=== PATIENT | male | born 1955 | race Caucasian/White ===

== ENCOUNTER → 2016-08-14 | Outpatient (REF) | payer OTHER | LOC: M LAB REF 12:01 | PROVIDERS: ATTEND Family Medicine | DX: M10.9 Gout, unspecified (principal) ==

== ENCOUNTER 2016-10-23 07:43 | Emergency (ER) | payer OTHER ==
[~2016-10-23] VITALS: Ht 182.9 cm; Wt 133.8 kg
[2016-10-23] MEDS ORDERED: LOSA50TA20 PO (08:04)
[2016-10-23] MEDS ORDERED: ALLO10TA PO (08:05)
[2016-10-23] MEDS ORDERED: COLC1CAP PO (08:06)
[2016-10-23] MEDS ORDERED: INDO50CA PO (08:07)
[2016-10-23] MEDS ORDERED: MORPHINE 4 MG/ML 1ML SYRINGE IV ONE (08:30)
[2016-10-23 08:49] LABS: BASO % 0.6 % (0.0-1.0); EOS # 0.2 K/mm3 (0.0-0.50); EOS % 3.7 % (0.0-3.0); LARGE UNSTAINED CELL # 0.1 K/mm3 (0.0-0.4); LYMPH # 1.1 K/mm3 (1.5-4.5); LYMPH % 25.3 % (24.0-44.0); MEAN CORPUSCULAR HEMOGLOBIN 30.9 pg (27.0-33.0); MEAN CORPUSCULAR HGB CONC 33.6 g/dl (32.0-36.5); MEAN CORPUSCULAR VOLUME 91.9 fl (80.0-96.0); MONO # 0.3 K/mm3 (0.0-0.8); MONO % 6.2 % (0.0-5.0); NEUTROPHILS # 2.5 K/mm3 (1.8-7.7); NEUTROPHILS % 62.2 % (36.0-66.0); PLATELET COUNT, AUTOMATED 165 k/mm3 (150-450); RED CELL DISTRIBUTION WIDTH 14.3 % (11.5-14.5)
[2016-10-23 09:13] LABS: ANION GAP 6 MEQ/L (8-16); BLOOD UREA NITROGEN 24 MG/DL (7-18); CALCIUM LEVEL 8.9 MG/DL (8.8-10.2); CARBON DIOXIDE LEVEL 27 MEQ/L (21-32); CHLORIDE LEVEL 108 MEQ/L (98-107); CREATININE FOR GFR 1.04 MG/DL (0.70-1.30); GLOMERULAR FILTRATION RATE > 60.0 (>49); GLUCOSE, FASTING 101 MG/DL (80-110); POTASSIUM SERUM 3.9 MEQ/L (3.5-5.1); SODIUM LEVEL 141 MEQ/L (136-145)
--- NOTE | 2016-10-23 09:46 | REP ---
Abdominal wall ultrasound: History: Umbilical hernia, assess contents. Findings: Scanning is obtained through the anterior abdominal wall in the region of the umbilical hernia. A defect in the anterior abdominal wall is observed measuring 0.7 cm transverse without Valsalva and 1.3 cm with Valsalva. Hernia was not reducible to sonographic pressure. Its contents appear to be slightly heterogeneous intra-abdominal fat. No peristalsis was observed. Impression: Nonreducible umbilical hernia containing abdominal fat. Signed by Jeffrey Nichols MD 10/23/2016 12:08 P
[2016-10-23 10:39] VITALS: BP 142/80
== END 2016-10-23 10:42 | disposition home or self-care (01) ==
LOC: M ED 09:38
DX: K42.9 Umbilical hernia without obstruction or gangrene (principal)

== ENCOUNTER 2017-01-03 16:10 | Observation (INO) | payer OTHER ==
[~2017-01-03] VITALS: Ht 182.9 cm; Wt 132.5 kg
[~2017-01-03 16:10] MED LIST: ALLO10TA PO; COLC1CAP PO; INDO50CA PO; LOSA50TA20 PO
[2017-01-03] MEDS ORDERED: INDO50CA PO (16:29)
[2017-01-03 17:08] LABS: BASO % 0.7 % (0.0-1.0); EOS # 0.1 K/mm3 (0.0-0.50); EOS % 1.6 % (0.0-3.0); LARGE UNSTAINED CELL # 0.1 K/mm3 (0.0-0.4); LYMPH # 0.9 K/mm3 (1.5-4.5); LYMPH % 17.3 % (24.0-44.0); MEAN CORPUSCULAR HEMOGLOBIN 30.9 pg (27.0-33.0); MEAN CORPUSCULAR HGB CONC 33.5 g/dl (32.0-36.5); MEAN CORPUSCULAR VOLUME 92.1 fl (80.0-96.0); MONO # 0.2 K/mm3 (0.0-0.8); MONO % 4.8 % (0.0-5.0); NEUTROPHILS # 3.6 K/mm3 (1.8-7.7); NEUTROPHILS % 74.6 % (36.0-66.0); PLATELET COUNT, AUTOMATED 177 k/mm3 (150-450); RED CELL DISTRIBUTION WIDTH 14.3 % (11.5-14.5); WHITE BLOOD COUNT 4.9 K/mm3 (4.0-10.0)
[2017-01-03 17:14] LABS: INR 0.99
--- NOTE | 2017-01-03 17:26 | REP ---
Portable chest: Single view. History: Syncope. Comparison study: No comparison study. Findings: A the lungs are symmetrically aerated and free of infiltrate. Heart is not felt to be enlarged. Pulmonary vasculature is not increased. The aorta is somewhat tortuous. EKG electrodes are seen. Impression: No active disease. Signed by Jeffrey Nichols MD 01/03/2017 05:17 P
[2017-01-03 17:39] LABS: ANION GAP 11 MEQ/L (8-16); BLOOD UREA NITROGEN 20 MG/DL (7-18); CALCIUM LEVEL 8.8 MG/DL (8.8-10.2); CARBON DIOXIDE LEVEL 23 MEQ/L (21-32); CHLORIDE LEVEL 105 MEQ/L (98-107); CREATININE FOR GFR 0.99 MG/DL (0.70-1.30); GLOMERULAR FILTRATION RATE > 60.0 (>49); GLUCOSE, FASTING 89 MG/DL (80-110); MAGNESIUM LEVEL 2.2 MG/DL (1.8-2.4); POTASSIUM SERUM 3.8 MEQ/L (3.5-5.1); SODIUM LEVEL 139 MEQ/L (136-145)
[2017-01-03] MEDS ORDERED: ZYLO300T4 PO (17:42)
[2017-01-03 17:58] LABS: ALBUMIN 3.7 GM/DL (3.2-5.2); ALBUMIN/GLOBULIN RATIO 1.23 (1.00-1.93); ALKALINE PHOSPHATASE 70 U/L (45-117); ALT/SGPT 41 U/L (12-78); AST/SGOT 27 U/L (15-37); BILIRUBIN,DIRECT 0.2 MG/DL (0.0-0.2); BILIRUBIN,TOTAL 0.8 MG/DL (0.2-1.0); TOTAL PROTEIN 6.7 GM/DL (6.4-8.2)
[2017-01-03] MEDS ORDERED: ACETAMINOPHEN TAB 650MG DOSE (2X325MG) PO PRN (20:00)
--- NOTE | 2017-01-03 21:30 | HPE ---
DATE OF ADMISSION: 01/03/2017 PRIMARY CARE PROVIDER: Dr. Franck Leon ATTENDING PHYSICIAN: Dr. Keyes CHIEF COMPLAINT: Syncope episode. HISTORY OF PRESENT ILLNESS: The patient is a 61-year-old white male with a history of high blood pressure who presented to the hospital for evaluation of syncope episode. History was provided by himself and he is a good historian. 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 After his first drink he stated that he was feeling dizzy and almost passed out. People around him put him on the floor flat and called 911. His blood pressure was checked at the scene and found down to the 80s. Then he was brought to the hospital for further evaluation. He denies any headache. No tingling, numbness, weakness in the arms or lower extremities. No urine or bowel incontinence. No seizure activity. In the emergency room, his workup was insignificant, including normal blood tests and normal EKG. The medicine service was called for admission. REVIEW OF SYSTEMS: Denies fever. No chills. No headache. No blurry vision. No shortness of breath. No nausea or vomiting. No chest pain. No abdominal pain. No diarrhea. No tingling, numbness, or weakness in the arms or lower extremities. All other systems reviewed but negative. PAST MEDICAL HISTORY: 1. Hypertension. 2. Gout. PAST SURGICAL HISTORY: Right hip replacement. FAMILY HISTORY: Both parents . Mother from cancer. The father had a history of high blood pressure. ALLERGIES: Allergic to ASPIRIN, which causes lip swelling. MEDICATIONS: - losartan 50 mg once a day - colchicine 0.6 mg twice a day - indomethacin as needed - allopurinol 300 mg once a day PHYSICAL EXAMINATION: VITAL SIGNS: Temperature is 97 and heart rate is 84, respiratory rate 20, blood pressure 128/72, oxygen saturation is 96% on room air. GENERAL: He is awake, alert and oriented times three. He is not in acute distress. HEENT: Atraumatic. Pupils are equal, round and reactive to light. No jaundice. Extraocular muscles intact. Ears, nose and throat normal without any inflammation. NECK: No jugular venous distention (JVD). No bruits. LUNGS: Clear. No crackles. No wheezing. HEART: S1, S2. Regular. No murmur. ABDOMEN: Soft. Bowel sounds positive. Nontender. EXTREMITIES: Lower extremities with no edema in bilateral lower extremities. NEUROLOGIC: Nonfocal. SKIN: No rash. PSYCHOLOGICAL: No acute psychosis. DIAGNOSTIC/LABORATORIES: Include the following: Complete blood count (CBC) and differential showed WBC 4.9, hemoglobin and hematocrit 13.5/40.2, platelets 177. Sodium 139, potassium 3.8, BUN 20, creatinine 0.99, glucose 89, TSH is normal. Liver function tests within normal. Troponin negative. Normal EKG. IMPRESSION: 1. Near syncope. 2. Hypertension. 3. Gout. PLAN: Most likely the patient had vasovagal syncope due to the hot weather and low blood pressure. He will be admitted to the progressive care unit (PCU) for monitoring to rule out any arrhythmia. We will order head CT, carotid Doppler, as well as echocardiogram. We will continue his home medications. We will gently hydrate him. He will be admitted for observation.
--- NOTE | 2017-01-03 21:59 | REP ---
Clinical: Syncope . Findings: Age-related atrophy and microvascular ischemic changes are appreciated. The ventricles and sulci are symmetric. Fernández-white differentiation is maintained. There is no evidence for acute intracranial hemorrhage, mass/mass effect, pathology or infarction. No extra-axial fluid collection. Calvarium is intact. Paranasal sinuses and mastoid air cells are clear. Incidental note for calcified granuloma in the left occipital scalp. Impression: Age related atrophy and microvascular ischemic changes. No acute intracranial hemorrhage, infarction, or mass/mass effect. Incidental note for calcified granuloma in the left occipital scalp. Signed by Ced Dow MD 01/03/2017 09:50 P
[2017-01-03] MEDS: NS 1,000 ML IV SCH (23:30)
[2017-01-03] MEDS: LOSARTAN 50 MG TAB PO SCH (23:31)
[2017-01-03] MEDS: COLCHICINE 0.6 MG TAB PO SCH (23:31)
[2017-01-04 05:20] VITALS: BP 138/89
--- NOTE | 2017-01-04 07:45 | REP ---
Clinical: Syncope. Technique: Fernández scale and color Doppler evaluation using linear high frequency transducer Findings: Two-dimensional fernández scale and color images demonstrate normal arterial lumen with laminar flow and no appreciable narrowing. Color Doppler interrogation demonstrates normal arterial wave patterns and velocities with minimal spectral broadening. Normal flow direction is appreciated in the bilateral vertebral arteries. RIGHT (cm/s) LEFT (cm/s) ICA peak systolic velocity 72.0 60.8 ICA diastolic velocity 20.9 23.3 ECA peak systolic velocity 115.0 58.4 CCA peak systolic velocity 108.4 90.1 ICA/CCA ratio 0.66 0.67 Impression: No hemodynamically significant areas of narrowing or stenosis appreciated. Based on set standards narrowing falls within the less than 50% range. Signed by Ced Dow MD 01/04/2017 07:36 A
[2017-01-04 08:00] VITALS: BP 140/90
[2017-01-04] MEDS ORDERED: POTASSIUM CHLORIDE 10 MEQ SR TABLET PO ONE (08:15)
[2017-01-04] MEDS: COLCHICINE 0.6 MG TAB PO SCH ×2 (08:40→20:15)
[2017-01-04] MEDS: ALLOPURINOL 300 MG TAB PO SCH (08:40)
[2017-01-04] MEDS: LOSARTAN 50 MG TAB PO SCH ×2 (08:41→20:21)
[2017-01-04] MEDS: ENOXAPARIN 40 MG/0.4 ML SYRINGE (J1650) SC SCH (08:41)
[2017-01-04] MEDS: NS 1,000 ML IV SCH (08:42)
[2017-01-04 09:09] LABS: MEAN CORPUSCULAR HEMOGLOBIN 31.7 pg (27.0-33.0); MEAN CORPUSCULAR HGB CONC 33.9 g/dl (32.0-36.5); MEAN CORPUSCULAR VOLUME 93.5 fl (80.0-96.0); RED CELL DISTRIBUTION WIDTH 14.3 % (11.5-14.5); WHITE BLOOD COUNT 4.8 K/mm3 (4.0-10.0)
[2017-01-04 09:21] LABS: ANION GAP 7 MEQ/L (8-16); BLOOD UREA NITROGEN 20 MG/DL (7-18); CARBON DIOXIDE LEVEL 25 MEQ/L (21-32); CHLORIDE LEVEL 111 MEQ/L (98-107); CREATININE FOR GFR 1.08 MG/DL (0.70-1.30); GLOMERULAR FILTRATION RATE > 60.0 (>49); GLUCOSE, FASTING 93 MG/DL (80-110); POTASSIUM SERUM 4.4 MEQ/L (3.5-5.1); SODIUM LEVEL 143 MEQ/L (136-145)
[2017-01-04 12:00] VITALS: BP_SYST 126; BP_SYST 148; BP_SYST 150; BP_DIAS 79; BP_DIAS 84; BP_DIAS 85
--- NOTE | 2017-01-04 12:47 | REP ---
MRI brain without contrast: History: Possible CVA. . Comparison study: Comparison is made with yesterday's head CT. Technique: Axial and sagittal imaging planes are utilized for T1 and T2-weighted scans. Sequences include spin-echo, fast spin echo, FLAIR, and diffusion weighted sequences. MRI findings: No bony calvarial lesion is seen. Craniocervical junction and upper cervical cord are normal in appearance. There is no MR evidence of significant paranasal sinus disease. No intraorbital abnormality is seen. The lateral, third, and fourth ventricles are normal in size and position. Fernández-white differentiation pattern is intact above and below the tentorium. There is no evidence of intracranial hemorrhage. No mass, infarction, extra-axial fluid collection or midline shift is seen. There are scattered T2 hyperintensities in the subcortical and periventricular white matter consistent with small-vessel micro ischemic changes. No other abnormal white matter lesion is seen. Impression: Mild small vessel changes, there are low T1 low T2 signal intensities scalp nodules in the left occipital region. These appear calcified on yesterday's CT study. Otherwise negative noncontrast brain MRI study. Signed by Jeffrey Nichols MD 01/04/2017 12:38 P
--- NOTE | 2017-01-04 13:03 | REP ---
MR ANGIOGRAPHY THE BRAIN WITHOUT CONTRAST: HISTORY: Question CVA. TECHNIQUE: 3-D [id number] MR angiography of the brain is acquired in the usual fashion and maximal intensity projection images were generated in rotational format about the vertical and horizontal axes. In addition, source axial T1-weighted images are viewed in cine mode. MR ANGIOGRAPHIC FINDINGS: The distal vertebral arteries are patent and co-dominant. Basilar artery is a little tortuous but widely patent. The posterior cerebral and superior cerebellar vessels are normal and symmetric. The posterior circulation arteries are somewhat small generally. No focal stenosis is seen. The distal internal carotid arteries are unremarkable. Anterior and middle cerebral arteries appear intact. There is no visible naidu aneurysm or arteriovenous malformation. IMPRESSION: Generally, somewhat small posterior circulation arteries. No focal stenosis seen. No naidu aneurysm. No vessel cutoff. Otherwise, unremarkable MR angiography the brain. Signed by Jeffrey Nichols MD 01/04/2017 03:33 P
--- NOTE | 2017-01-04 14:24 | IPNPDOC ---
Text Note Date of Service The patient was seen on 01/04/17. NOTE Subjective: Patient feels well. No recurrence of symptoms. Objective: Vitals: (see below) General: No acute distress, laying comfortably in bed. HEENT: Moist mucous membranes. Neck: No JVD or lymphadenopathy Cardiac: RRR, No murmurs Pulm: Clear to auscultation b/l. No wheezing, rhonchi Abd: NT/ND + BS. Obese Ext: No edema or cyanosis Neuro: Strength 5/5 BUE and BLE. CN 2-12 intact. F to N intact Negative pronator drift. Negative Babinki. Labs (see below) Images: MRI Brain 01/04/17 Impression: Mild small vessel changes, there are low T1 low T2 signal intensities scalp nodules in the left occipital region. These appear calcified on yesterday's CT study. Otherwise negative noncontrast brain MRI study. MRA Brain 01/04/17 IMPRESSION: Generally, somewhat small posterior circulation arteries. No focal stenosis seen. No naidu aneurysm. No vessel cutoff. Otherwise, unremarkable MR angiography the brain. Carotid u/s 01/04/17 Impression: No hemodynamically significant areas of narrowing or stenosis appreciated. Based on set standards narrowing falls within the less than 50% range. CT Head 01/04/17 Impression: Age related atrophy and microvascular ischemic changes. No acute intracranial hemorrhage, infarction, or mass/mass effect. Incidental note for calcified granuloma in the left occipital scalp. CXR 01/04/17 Impression:No active disease. Assessment/Plan 1. Near syncope- likely vasovagal/orthostatic in nature. Patient was hypotensive on initial presentation was out in the hot weather and had been drinking beer and urinating quite a bit. Patient also had symptoms of diaphoresis as well. Denies chest pain/palpitations. EKG with no acute ST changes. Echocardiogram pending, continue monitoring on telemetry. MRI/MRA brain negative. IV fluid hydration 2. Hypertension- controlled 3. History of Gout 4. Obesity DVT prophy: Enoxaparin Plan to discharge last 24 hours after echocardiogram and telemetry monitoring. VS,Fishbone, I+O VS, Fishbone, I+O Laboratory Tests 01/03/17 16:51 Red Blood Count 4.37, Mean Corpuscular Volume 92.1, Mean Corpuscular Hemoglobin 30.9, Mean Corpuscular Hemoglobin Concent 33.5, Red Cell Distribution Width 14.3 , Neutrophils (%) (Auto) 74.6 H, Lymphocytes (%) (Auto) 17.3 L, Monocytes (%) ( Auto) 4.8, Eosinophils (%) (Auto) 1.6, Basophils (%) (Auto) 0.7, Neutrophils # ( Auto) 3.6, Lymphocytes # (Auto) 0.9 L, Monocytes # (Auto) 0.2, Eosinophils # ( Auto) 0.1, Basophils # (Auto) 0.0, Calcium Level 8.8, Total Creatine Kinase 150 01/04/17 08:46 Red Blood Count 4.58, Mean Corpuscular Volume 93.5, Mean Corpuscular Hemoglobin 31.7, Mean Corpuscular Hemoglobin Concent 33.9, Red Cell Distribution Width 14.3 , Calcium Level 9.0 Vital Signs Date Time Temp Pulse Resp B/P (MAP) Pulse Ox O2 Delivery O2 Flow Rate FiO2 01/04/17 12:00 61 126/79 (95) 79 148/84 (105) 73 150/85 (106) 01/04/17 12:00 98.5 18 99 Room Air I&O- Last 24 Hours up to 6 AM 01/04/17 06:00 Intake Total 360 ml Balance 360 ml TITO ROSE MD Jan 04, 2017 14:24
[2017-01-04 16:00] VITALS: BP 127/74
[2017-01-04 20:00] VITALS: BP_SYST 120; BP_SYST 122; BP_DIAS 70; BP_DIAS 78; BP_DIAS 80
[2017-01-04 23:37] VITALS: BP 125/69
[2017-01-05 05:13] VITALS: BP_SYST 129; BP_SYST 130; BP_SYST 135; BP_DIAS 70; BP_DIAS 80; BP_DIAS 81
[2017-01-05 05:47] LABS: MEAN CORPUSCULAR HEMOGLOBIN 31.4 pg (27.0-33.0); MEAN CORPUSCULAR HGB CONC 33.5 g/dl (32.0-36.5); MEAN CORPUSCULAR VOLUME 93.7 fl (80.0-96.0); RED CELL DISTRIBUTION WIDTH 14.6 % (11.5-14.5); WHITE BLOOD COUNT 3.6 K/mm3 (4.0-10.0)
[2017-01-05 06:45] LABS: ANION GAP 6 MEQ/L (8-16); BLOOD UREA NITROGEN 18 MG/DL (7-18); CALCIUM LEVEL 8.9 MG/DL (8.8-10.2); CARBON DIOXIDE LEVEL 24 MEQ/L (21-32); CHLORIDE LEVEL 113 MEQ/L (98-107); CREATININE FOR GFR 1.01 MG/DL (0.70-1.30); GLOMERULAR FILTRATION RATE > 60.0 (>49); GLUCOSE, FASTING 86 MG/DL (80-110); POTASSIUM SERUM 4.3 MEQ/L (3.5-5.1); SODIUM LEVEL 143 MEQ/L (136-145)
--- NOTE | 2017-01-05 07:19 | ECGEPIP ---
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
[2017-01-05 07:20] VITALS: BP 134/94
[2017-01-05] MEDS: ENOXAPARIN 40 MG/0.4 ML SYRINGE (J1650) SC SCH (09:00)
[2017-01-05 09:05] VITALS: BP 134/94
[2017-01-05] MEDS: ALLOPURINOL 300 MG TAB PO SCH (09:05)
[2017-01-05] MEDS: LOSARTAN 50 MG TAB PO SCH (09:05)
[2017-01-05] MEDS: COLCHICINE 0.6 MG TAB PO SCH (09:05)
[2017-01-05 11:40] VITALS: BP 131/82
--- NOTE | 2017-01-05 13:40 | ECGEPIP ---
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
--- NOTE | 2017-01-05 15:50 | DS.PDOC ---
Discharge Summary General Date of Admission Jan 03, 2017 at 19:53 Date of Discharge 01/05/17 Attending Physician: TITO ROSE MD Discharge Summary PROCEDURES PERFORMED DURING STAY: None. ADMITTING/DISCHARGE DIAGNOSES: 1. Presyncope 2. Dehydration with hypotension 3. History of hypertension 4. Obesity COMPLICATIONS/CHIEF COMPLAINT: Syncope. HISTORY OF PRESENT ILLNESS/HOSPITAL COURSE: . 61-year-old man past medical history of hypertension and obesity who presents with a presyncopal episode. Patient was drinking beer when he developed lightheadedness and generalized weakness. The patient had been working with [employer] earlier in the day and states he's been urinating quite frequently the day of. Upon EMS arrival, patient's systolic blood pressure was in his 70s. Patient was hydrated respond to therapy well. Patient denied chest pains/palpitations. Patient denies loss of consciousness. Patient denies any previous episodes. Patient was observed in telemetry. Patient now recurrence of his symptoms. Echocardiogram was completed and results are pending. Patient's orthostatics are negative at this time. He is asymptomatic. Patient's hemodynamic stable and ready to be discharged home. Patient is to return to the ED if symptoms do recur. DISCHARGE MEDICATIONS: Please see below. ALLERGIES: Please see below. PHYSICAL EXAMINATION ON DISCHARGE: Vitals: (see below) General: No acute distress, laying comfortably in bed. HEENT: Moist mucous membranes. Neck: No JVD or lymphadenopathy Cardiac: RRR, No murmurs Pulm: Clear to auscultation b/l. No wheezing, rhonchi Abd: NT/ND + BS. Obese Ext: No edema or cyanosis Neuro: Strength 5/5 BUE and BLE. CN 2-12 intact. F to N intact Negative pronator drift. Negative Babinki. LABORATORY DATA: Please see below. IMAGING: MRI Brain 01/04/17 Impression: Mild small vessel changes, there are low T1 low T2 signal intensities scalp nodules in the left occipital region. These appear calcified on yesterday's CT study. Otherwise negative noncontrast brain MRI study. MRA Brain 01/04/17 IMPRESSION: Generally, somewhat small posterior circulation arteries. No focal stenosis seen. No naidu aneurysm. No vessel cutoff. Otherwise, unremarkable MR angiography the brain. Carotid u/s 01/04/17 Impression: No hemodynamically significant areas of narrowing or stenosis appreciated. Based on set standards narrowing falls within the less than 50% range. CT Head 01/04/17 Impression: Age related atrophy and microvascular ischemic changes. No acute intracranial hemorrhage, infarction, or mass/mass effect. Incidental note for calcified granuloma in the left occipital scalp. CXR 01/04/17 Impression:No active disease. PROGNOSIS: Fair ACTIVITY: As tolerated. DIET: Low-sodium DISCHARGE PLAN/DISPOSITION: 01 Home, Self-Care. DISCHARGE INSTRUCTIONS: 1. Follow-up PCP 1-2 weeks. Return to the ED if symptoms occur. DISCHARGE CONDITION: Stable. TIME SPENT ON DISCHARGE: Greater than 30 minutes. Vital Signs/I&Os Vital Signs Date Time Temp Pulse Resp B/P (MAP) Pulse Ox O2 Delivery O2 Flow Rate FiO2 01/05/17 11:40 97.4 57 20 131/82 (98) 96 Room Air I&O- Last 24 Hours up to 6 AM 01/05/17 06:00 Intake Total 1620 ml Output Total 550 ml Balance 1070 ml Laboratory Data Labs 24H Laboratory Tests 2 01/05/17 05:08: Anion Gap 6L, Glomerular Filtration Rate > 60.0, Blood Urea Nitrogen 18, Creatinine 1.01, Sodium Level 143, Potassium Level 4.3, Chloride Level 113H, Carbon Dioxide Level 24, Calcium Level 8.9 CBC/BMP Laboratory Tests 01/05/17 05:08 Red Blood Count 4.46, Mean Corpuscular Volume 93.7, Mean Corpuscular Hemoglobin 31.4, Mean Corpuscular Hemoglobin Concent 33.5, Red Cell Distribution Width 14.6 H, Calcium Level 8.9 Discharge Medications Scheduled Allopurinol (Zyloprim) 300 Mg Tab, 300 MG PO DAILY, (Reported) Colchicine (Colchicine) 0.6 Mg Cap, 0.6 MG PO BID, (Reported) Losartan Potassium (Losartan Potassium) 50 Mg Tab, 50 MG PO BID, (Reported) Scheduled PRN Indomethacin (Indomethacin) 50 Mg Cap, 50 MG PO TID PRN for gout, (Reported) Allergies Coded Allergies: Aspirin (Verified Allergy, Intermediate, bottom lip swells, 01/03/17) TITO ROSE MD Jan 05, 2017 15:50
--- NOTE | 2017-01-05 19:40 | ECHO ---
DATE OF PROCEDURE: 01/04/2017 REFERRING PHYSICIAN: Dr. Bose, Dr. Keyes INDICATION: Syncope. HEIGHT: 183 cm WEIGHT: 132 kg. DIMENSIONS: IVS: 1.4 LV: 5.0 LVPW: 1.4 LA: 4.4 Aorta: 3.1 FINDINGS Study is of fair technical quality corresponding to patient's body habitus. The patient was in sinus rhythm during the study. Left ventricle is of normal size and hyperdynamic contractility, estimated left ventricular ejection fraction (LVEF) 70-75%. Mild to moderate left ventricular hypertrophy is present. Right ventricle does not appear grossly enlarged. Left atrium is at least mildly enlarged. Right atrium was poorly visualized. Aortic valve appears normal. Same applies for mitral and tricuspid valves. Pulmonic valve was not well seen. No pericardial effusion is noted. Inferior vena cava is of normal size. Aortic root is normal. Aortic arch and abdominal aorta were not seen. Doppler interrogation of aortic valve reveals no stenosis or insufficiency. There is trace mitral and trace tricuspid insufficiency. Calculated pulmonary artery pressure is in 30s corresponding to mild pulmonary hypertension. Pulmonic valve was not well seen and consequently I cannot comment on its function. Mitral inflow pattern and tissue Doppler imaging of mitral annulus reveals probably normal diastolic function even though tissue Doppler velocities of mitral annulus are mildly reduced (8.3 and 10.9 cm/s, septal and lateral mitral annulus respectively). CONCLUSIONS: 1. Study is of fair technical quality. 2. Normal left ventricle (LV) size with mild to moderate left ventricular hypertrophy (LVH), hyperdynamic LV systolic function and probably normal diastolic function. 3. No significant valvular disease. 4. Normal central venous pressure. 5. At least mild pulmonary hypertension. COMMENT: Subacute bacterial endocarditis (SBE) prophylaxis is not recommended. Study is overall most consistent with hypertensive heart disease, but does not provide clear-cut explanation for syncopal event.
== END 2017-01-05 14:01 | disposition home or self-care (01) ==
LOC: M ED 16:10 → EDSEX 16:10 → EDBD 16:10 → M ED INP 19:53 → M PCU 01-04 05:05
PROVIDERS: ADMIT Hospitalist; ATTEND Internal Medicine
DX: R55 Syncope and collapse (principal); E86.0 Dehydration; I95.89 Other hypotension; I10 Essential (primary) hypertension; E66.9 Obesity, unspecified; Z79.899 Other long term (current) drug therapy; Z88.8 Allergy status to other drugs, medicaments and biological substances
CPT/HCPCS: 36415; 70450; 70544; 70551; 71010; 80048; 80076; 82550; 82553; 83735; 84443; 85025; 85027; 85610; 93005; 93041; 93880; 94760; 99285; J1650

== ENCOUNTER → 2017-02-16 | Outpatient (REF) | payer OTHER ==
[~2017-02-16] MED LIST changes: +ZYLO300T4 PO
== END ==
LOC: M LAB REF 13:35
PROVIDERS: ATTEND Family Medicine
DX: M10.9 Gout, unspecified (principal)

== ENCOUNTER → 2017-05-26 | Outpatient (CLI) | payer OTHER ==
--- NOTE | 2017-05-26 14:58 | REP ---
LEFT CLAVICLE: Two views of the left clavicle are performed and demonstrate no fracture or dislocation. There is mild narrowing and spurring at the acromioclavicular joint. IMPRESSION: Degenerative changes acromioclavicular joint without fracture. Signed by Max Fernández MD 05/26/2017 04:19 P
--- NOTE | 2017-05-26 14:58 | REP ---
LEFT SHOULDER, THREE VIEWS: Three views of the left shoulder are performed. There is no acute fracture or dislocation. There is mild narrowing and spurring at the acromioclavicular joint. There is moderately severe narrowing at the glenohumeral joint with subchondral sclerosis and cystic change. There is moderate spurring of the humeral head. IMPRESSION: Arthritic changes as above. Signed by Max Fernández MD 05/26/2017 04:19 P
== END ==
LOC: M RAD 08:14
PROVIDERS: ATTEND Family Medicine
DX: M19.012 Primary osteoarthritis, left shoulder (principal)

== ENCOUNTER → 2018-03-28 | Outpatient (REF) | payer OTHER ==
[2018-03-28 13:54] LABS: URIC ACID 6.2 MG/DL (3.5-7.2)
== END ==
LOC: M LAB REF 12:25
DX: M10.9 Gout, unspecified (principal)

== ENCOUNTER 2018-11-21 07:23 | Day surgery (SDC) | payer OTHER ==
[~2018-11-21] VITALS: Ht 182.9 cm; Wt 137.9 kg
[~2018-11-21 07:23] MED LIST changes: +GLUC1CAP10 PO; -INDO50CA PO; +INDO50CA11 PO; -LOSA50TA20 PO; +LOSA50TA88 PO; -ZYLO300T4 PO; +ZYLO300T6 PO
[2018-11-21] MEDS ORDERED: NS 1,000 ML IV ONE (07:45)
[2018-11-21] MEDS ORDERED: PROPOFOL 200 MG/20 ML VIAL As Ordered ONE ×2 (08:16→08:17)
[2018-11-21] MEDS ORDERED: LIDOCAINE 2% INJ 100 MG/5 ML SDV (FOR ANES.) As Ordered ONE (08:16)
--- NOTE | 2018-11-21 08:42 | ROOR ---
Patient Name: Omar Brown Procedure Date: 11/21/2018 8:24 AM Date of : 1955 Age: 63 Room: [facility] Gender: Male Note Status: Finalized Procedure: Colonoscopy Indications: Screening for colorectal malignant neoplasm Providers: Torsten Garcia Jr, MD Referring MD: Franck Leon MD Requesting Provider: Medicines: Propofol per Anesthesia Complications: No immediate complications. Procedure: Pre-Anesthesia Assessment: - Prior to the procedure, a History and Physical was performed, and patient medications and allergies were reviewed. The patient is competent. The risks and benefits of the procedure and the sedation options and risks were discussed with the patient. All questions were answered and informed consent was obtained. Patient identification and proposed procedure were verified by the physician and the nurse in the pre-procedure area and in the procedure room. Mental Status Examination: alert and oriented. Airway Examination: normal oropharyngeal airway and neck mobility. Respiratory Examination: clear to auscultation. CV Examination: normal. ASA Grade Assessment: II - A patient with mild systemic disease. After reviewing the risks and benefits, the patient was deemed in satisfactory condition to undergo the procedure. The anesthesia plan was to use moderate sedation / analgesia (conscious sedation). Immediately prior to administration of medications, the patient was re-assessed for adequacy to receive sedatives. The heart rate, respiratory rate, oxygen saturations, blood pressure, adequacy of pulmonary ventilation, and response to care were monitored throughout the procedure. The physical status of the patient was re-assessed after the procedure. The Colonoscope was introduced through the anus and advanced to the cecum, identified by appendiceal orifice and ileocecal valve. The colonoscopy was performed without difficulty. The patient tolerated the procedure well. Findings: The rectum, recto-sigmoid colon, descending colon, transverse colon, ascending colon, cecum, appendiceal orifice and ileocecal valve appeared normal. A few small and large-mouthed diverticula were found in the sigmoid colon. Impression: - The rectum, recto-sigmoid colon, descending colon, transverse colon, ascending colon, cecum, appendiceal orifice and ileocecal valve are normal. - Diverticulosis in the sigmoid colon. - No specimens collected. Recommendation: - Discharge patient to home (ambulatory). - Repeat colonoscopy in 10 years for screening purposes. Torsten Garcia MD Torsten Garcia Jr, MD 11/21/2018 8:41:52 AM Electronically signed by Torsten Garcia Jr, MD Number of Addenda: 0 Note Initiated On: 11/21/2018 8:24 AM Estimated Blood Loss: Estimated blood loss: none.
[2018-11-21 08:55] VITALS: BP 147/94
== END 2018-11-21 09:05 | disposition home or self-care (01) ==
LOC: M OPP 07:23
PROVIDERS: ATTEND Surgery
DX: K57.30 Diverticulosis of large intestine without perforation or abscess without bleeding (principal); Z12.11 Encounter for screening for malignant neoplasm of colon

== ENCOUNTER 2019-01-09 16:38 | Emergency (ER) | payer OTHER ==
[~2019-01-09] VITALS: Ht 182.9 cm; Wt 130.4 kg
[~2019-01-09 16:38] MED LIST changes: -INDO50CA11 PO; +INDO50CA91 PO
[2019-01-09] MEDS ORDERED: NS 1,000 ML IV ONE ×2 (16:45→18:15)
--- NOTE | 2019-01-09 17:03 | REP ---
Clinical: Syncope . Comparison: 01/03/2017 . Findings: The ventricles, sulci, and cisterns are normal in position and appearance. Fernández-white differentiation is maintained. No acute intracranial hemorrhage, mass/mass effect, pathology or trauma/injury. No evidence for acute infarction. No extra-axial fluid collection. Calvarium is intact. Paranasal sinuses and mastoid air cells are clear. Impression: No evidence for acute intracranial pathology or trauma/injury. Electronically Signed by Ced Dow MD 01/09/2019 04:54 P
[2019-01-09 17:06] LABS: BASO # 0.1 10^3/uL (0.0-0.2); BASO % 0.7 % (0.0-1.0); EOS # 0.2 10^3/uL (0.0-0.50); HEMATOCRIT 45.2 % (42.0-52.0); HEMOGLOBIN 15.5 g/dl (13.5-17.5); LYMPH # 2.3 10^3/uL (1.5-4.5); LYMPH % 29.9 % (24.0-44.0); MEAN CORPUSCULAR HEMOGLOBIN 31.1 pg (27.0-33.0); MEAN CORPUSCULAR HGB CONC 34.3 g/dl (32.0-36.5); MEAN CORPUSCULAR VOLUME 90.6 fl (80.0-96.0); MONO # 0.6 10^3/uL (0.0-0.8); MONO % 7.3 % (0.0-5.0); NEUTROPHILS # 4.6 10^3/uL (1.8-7.7); NEUTROPHILS % 59.6 % (36.0-66.0); PLATELET COUNT, AUTOMATED 230 10^3/uL (150-450); RED BLOOD COUNT 4.99 10^6/uL (4.30-6.10); WHITE BLOOD COUNT 7.7 10^3/uL (4.0-10.0)
[2019-01-09] MEDS ORDERED: IBUP80TA PO (17:10)
--- NOTE | 2019-01-09 17:26 | REP ---
Clinical: Syncope/near-syncopal episode . Comparison: 01/03/2017 . Findings: The mediastinum and cardiac silhouette are stable and within normal limits for portable technique. The lung valles are clear without acute consolidation, effusion, or pneumothorax. Skeletal structures are intact. Impression: No acute cardiopulmonary process appreciated. Electronically Signed by Ced Dow MD 01/09/2019 05:17 P
[2019-01-09 17:27] LABS: INR 0.93; PROTHROMBIN TIME 12.2 SECONDS (11.8-14.0)
--- NOTE | 2019-01-09 17:42 | ECGEPIP ---
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
[2019-01-09 17:48] LABS: BLOOD UREA NITROGEN 27 MG/DL (7-18); CALCIUM LEVEL 9.1 MG/DL (8.8-10.2); CARBON DIOXIDE LEVEL 26 MEQ/L (21-32); CHLORIDE LEVEL 107 MEQ/L (98-107); CK-MB VALUE MASS 3.2 NG/ML (<3.6); CPK CREATINE PHOSPHOKINASE 176 U/L (39-308); ETHYL ALCOHOL (ETHANOL) < 0.003 % (0.000-0.010); GLOMERULAR FILTRATION RATE 40.8 (>49); GLUCOSE, FASTING 115 MG/DL (70-100); MAGNESIUM LEVEL 2.6 MG/DL (1.8-2.4); MB/CK RELATIVE INDEX 1.82 (< OR =4); POTASSIUM SERUM 4.4 MEQ/L (3.5-5.1); SODIUM LEVEL 142 MEQ/L (136-145); TROPONIN I < 0.02 NG/ML (< 0.10)
[2019-01-09 20:01] VITALS: BP 118/72
== END 2019-01-09 20:10 | disposition home or self-care (01) ==
LOC: EDBD 16:38 → M ED 16:38 → EDSEX 16:38 → M ED 20:10
DX: E86.0 Dehydration (principal); E03.9 Hypothyroidism, unspecified; T67.5XXA Heat exhaustion, unspecified, initial encounter; Y92.9 Unspecified place or not applicable; Y93.9 Activity, unspecified; Z79.899 Other long term (current) drug therapy; Z88.8 Allergy status to other drugs, medicaments and biological substances
CPT/HCPCS: 70450; 71045; 80048; 82550; 82553; 83735; 84443; 84484; 85025; 85610; 93005; 93041; 94760; 96360; 99285; G0480

== ENCOUNTER 2019-03-08 16:17 | Emergency (ER) | payer OTHER ==
[~2019-03-08 16:17] MED LIST changes: +IBUP80TA PO
--- NOTE | 2019-03-08 18:24 | REP ---
Clinical: Syncope . Comparison: 01/09/2019 . Technique: PA and lateral. Findings: The mediastinum and cardiac silhouette are normal. The lung valles demonstrate chronic-appearing changes without acute consolidation, effusion, or pneumothorax. The skeletal structures are intact and normal. Impression: 1. No acute cardiopulmonary process. Electronically Signed by Ced Dow MD 03/08/2019 06:16 P
[2019-03-08 18:49] LABS: BASO % 0.4 % (0.0-1.0); EOS # 0.1 10^3/uL (0.0-0.50); EOS % 1.1 % (0.0-3.0); HEMATOCRIT 46.8 % (42.0-52.0); HEMOGLOBIN 15.9 g/dl (13.5-17.5); LYMPH # 1.3 10^3/uL (1.5-4.5); LYMPH % 12.5 % (24.0-44.0); MEAN CORPUSCULAR HEMOGLOBIN 30.3 pg (27.0-33.0); MEAN CORPUSCULAR VOLUME 89.1 fl (80.0-96.0); MONO # 0.7 10^3/uL (0.0-0.8); MONO % 6.5 % (0.0-5.0); NEUTROPHILS # 7.9 10^3/uL (1.8-7.7); NEUTROPHILS % 79.1 % (36.0-66.0); PLATELET COUNT, AUTOMATED 194 10^3/uL (150-450); RED BLOOD COUNT 5.25 10^6/uL (4.30-6.10)
[2019-03-08 18:59] LABS: INR 0.93; PROTHROMBIN TIME 12.2 SECONDS (11.8-14.0)
[2019-03-08 19:00] LABS: PARTIAL THROMBOPLASTIN TIME 27.8 SECONDS (25.0-38.4)
[2019-03-08 19:26] LABS: BLOOD UREA NITROGEN 33 MG/DL (7-18); CALCIUM LEVEL 9.4 MG/DL (8.8-10.2); CARBON DIOXIDE LEVEL 27 MEQ/L (21-32); CHLORIDE LEVEL 106 MEQ/L (98-107); CK-MB VALUE MASS 3.4 NG/ML (<3.6); CPK CREATINE PHOSPHOKINASE 145 U/L (39-308); CREATININE FOR GFR 1.29 MG/DL (0.70-1.30); FREE T4 0.97 NG/DL (0.76-1.46); GLOMERULAR FILTRATION RATE 59.9 (>49); GLUCOSE, FASTING 78 MG/DL (70-100); MAGNESIUM LEVEL 2.4 MG/DL (1.8-2.4); MB/CK RELATIVE INDEX 2.34 (< OR =4); POTASSIUM SERUM 4.3 MEQ/L (3.5-5.1); SODIUM LEVEL 140 MEQ/L (136-145); TROPONIN I < 0.02 NG/ML (< 0.10)
[2019-03-08] MEDS ORDERED: NS 1,000 ML IV ONE (20:30)
[2019-03-08 20:31] VITALS: BP 132/87
--- NOTE | 2019-03-09 07:17 | ECGEPIP ---
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
== END 2019-03-08 20:33 | disposition home or self-care (01) ==
LOC: M ED 16:17 → EDBD 16:17 → M ED 20:33
DX: E86.0 Dehydration (principal); I10 Essential (primary) hypertension; Z88.8 Allergy status to other drugs, medicaments and biological substances

== ENCOUNTER → 2019-07-07 | Outpatient (REF) | payer OTHER | LOC: M LAB REF 12:24 | PROVIDERS: ATTEND Family Medicine | DX: M10.9 Gout, unspecified (principal) ==

== ENCOUNTER → 2020-05-24 | Outpatient (REF) | payer OTHER | LOC: M LAB REF 12:24 | PROVIDERS: ATTEND Family Medicine | DX: M10.9 Gout, unspecified (principal) ==

== ENCOUNTER → 2021-07-01 | Outpatient (REF) | payer MEDICARE, OTHER | LOC: M LAB REF 12:28 | PROVIDERS: ATTEND Family Medicine | DX: M10.9 Gout, unspecified (principal) ==

== ENCOUNTER → 2022-07-24 | Outpatient (REF) | payer MEDICARE, OTHER ==
[~2022-07-24] MED LIST changes: +LOSA50TA28 PO; -LOSA50TA88 PO
== END ==
LOC: M LAB REF 11:36
PROVIDERS: ATTEND Family Medicine
DX: M10.9 Gout, unspecified (principal)

== ENCOUNTER → 2023-02-28 | Outpatient (CLI) | payer MEDICARE, OTHER | LOC: M RAD 08:17 | PROVIDERS: ATTEND Family Medicine | DX: R74.01 Elevation of levels of liver transaminase levels (principal) ==

== ENCOUNTER → 2023-08-09 | Outpatient (REF) | payer MEDICARE, OTHER | LOC: M LAB REF 12:55 | PROVIDERS: ATTEND Family Medicine | DX: M10.9 Gout, unspecified (principal) ==

== ENCOUNTER → 2024-02-20 | Outpatient (REF) | payer MEDICARE, OTHER | LOC: M LAB REF 13:24 | PROVIDERS: ATTEND Family Medicine | DX: K76.0 Fatty (change of) liver, not elsewhere classified (principal) ==

== ENCOUNTER → 2024-09-02 | Outpatient (REF) | payer MEDICARE, OTHER | LOC: M LAB REF 13:11 | PROVIDERS: ATTEND Family Medicine | DX: M10.9 Gout, unspecified (principal) ==

== ENCOUNTER → 2024-11-18 | Outpatient (REF) | payer MEDICARE, OTHER ==
[2024-11-18 17:36] LABS: INR 0.86; PARTIAL THROMBOPLASTIN TIME 30.6 SECONDS (24.8-34.2); PROTHROMBIN TIME 12.1 SECONDS (12.5-14.5)
== END ==
LOC: M LAB REF 16:41
PROVIDERS: ATTEND Family Medicine
DX: Z01.818 Encounter for other preprocedural examination (principal)

== ENCOUNTER → 2024-11-18 | Outpatient (CLI) | payer MEDICARE, OTHER | LOC: M WUC 12:42 | PROVIDERS: ATTEND Family Medicine | DX: Z01.818 Encounter for other preprocedural examination (principal) ==

== ENCOUNTER → 2025-03-05 | Outpatient (REF) | payer MEDICARE, OTHER | LOC: M LAB REF 12:16 | PROVIDERS: ATTEND Family Medicine | DX: E07.9 Disorder of thyroid, unspecified (principal) ==